=== PATIENT | male | born 1955 | race American Indian/Alaskan Native ===

== ENCOUNTER 2019-07-10 18:48 | Emergency (ER) | payer OTHER ==
[2019-07-10] MEDS ORDERED: NEOMY 3.5 MG/BACIT 400 UNITS/POLY B 5000 UNITS/GM OINT PACKET TP ONE (23:39)
[2019-07-10] MEDS ORDERED: TETANUS,DIPH,PERTUSS(ACELL) VACCINE 0.5 ML SYRINGE IM ONE (23:39)
[2019-07-10] MEDS ORDERED: ACETAMINOPHEN 500 MG TAB PO ONE (23:39)
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
[2019-07-11 00:49] VITALS: BP 169/96
== END 2019-07-11 00:49 | disposition home or self-care (01) ==
LOC: ED 18:48
DX: S60.811A Abrasion of right wrist, initial encounter (principal); S60.812A Abrasion of left wrist, initial encounter; V89.2XXA Person injured in unspecified motor-vehicle accident, traffic, initial encounter; Y93.89 Activity, other specified; Y92.410 Unspecified street and highway as the place of occurrence of the external cause; Y99.8 Other external cause status
CPT/HCPCS: 90471; 90715; 99282; A6250